=== PATIENT | female | born 1960 | race Caucasian/White ===

== ENCOUNTER 2016-10-26 10:58 | Emergency (ER) | payer BC ==
[~2016-10-26] VITALS: Ht 180.3 cm; Wt 100.0 kg
[~2016-10-26 10:58] MED LIST: MEDDOSEPAK PO; PROAIR HFA IN; ZPAK PO
[2016-10-26 11:50] VITALS: BP 168/86
== END 2016-10-26 11:54 | disposition home or self-care (01) | DRG 605 ==
LOC: ED 10:58
PROC: 0HQGXZZ Repair Left Hand Skin, External Approach (ICD-10-PCS; principal; 2016-10-26)
DX: S61.211A Laceration without foreign body of left index finger without damage to nail, initial encounter (principal); W26.0XXA Contact with knife, initial encounter; Y93.G1 Activity, food preparation and clean up; Y92.239 Unspecified place in hospital as the place of occurrence of the external cause